=== PATIENT | female | born 1995 | race African-American/Black ===

== ENCOUNTER 2016-06-06 22:21 | Inpatient (IN) | payer OTHER ==
[2016-06-06 23:27] LABS: AMPHETAMINES NEGATIVE (NEGATIVE); BARBITURATES NEGATIVE (NEGATIVE); BENZODIAZEPINES NEGATIVE (NEGATIVE); COCAINE NEGATIVE (NEGATIVE); MARIJUANA (THC) NEGATIVE (NEGATIVE); METHADONE NEGATIVE (NEGATIVE); TRICYCLIC ANTIDEPRESSANT NEGATIVE (NEGATIVE)
[2016-06-06 23:41] LABS: BILIRUBIN NEGATIVE (NEGATIVE); BLOOD NEGATIVE Ery/uL (NEGATIVE); CLARITY CLEAR (CLEAR); COLOR YELLOW (YELLOW); GLUCOSE (U) NORMAL (NORMAL); KETONE (U) NEGATIVE (NEGATIVE); LEUKOCYTES NEGATIVE Leu/uL (NEGATIVE); NITRITE NEGATIVE (NEGATIVE); PROTEIN NEGATIVE (NEGATIVE); UROBILINOGEN 0.2 mg/dL (0.2-1.0)
[2016-06-07 01:29] LABS: HCT 28.6 % (37.0-47.0); HGB 9.5 g/dl (12.5-16.0); MCH 24.2 pg (25.0-31.0); MCHC 33.2 g/dL (32.0-36.0); PLT 148 K/uL (150-400); RBC 3.92 M/uL (4.20-5.40); RDW 16.5 % (11.5-14.0); WBC 7.8 K/uL (4.0-10.5)
[2016-06-07 04:30] LABS: BILIRUBIN NEGATIVE (NEGATIVE); BLOOD TRACE-INTACT Ery/uL (NEGATIVE); CLARITY CLEAR (CLEAR); GLUCOSE (U) NORMAL (NORMAL); KETONE (U) NEGATIVE (NEGATIVE); LEUKOCYTES NEGATIVE Leu/uL (NEGATIVE); NITRITE NEGATIVE (NEGATIVE); PROTEIN NEGATIVE (NEGATIVE); UROBILINOGEN 0.2 mg/dL (0.2-1.0)
[2016-06-07 04:31] LABS: AMPHETAMINES NEGATIVE (NEGATIVE); BARBITURATES NEGATIVE (NEGATIVE); BENZODIAZEPINES NEGATIVE (NEGATIVE); COCAINE NEGATIVE (NEGATIVE); MARIJUANA (THC) NEGATIVE (NEGATIVE); METHADONE NEGATIVE (NEGATIVE); TRICYCLIC ANTIDEPRESSANT NEGATIVE (NEGATIVE)
[2016-06-07 04:32] LABS: COLOR STRAW (YELLOW)
[2016-06-07 04:37] LABS: URINARY RBC RARE
[2016-06-07 16:41] LABS: HCT 27.1 % (37.0-47.0); HGB 8.9 g/dl (12.5-16.0); MCH 24.1 pg (25.0-31.0); MCHC 32.8 g/dL (32.0-36.0); MCV 73.2 fL (78.0-100.0); PLT 129 K/uL (150-400); RDW 16.6 % (11.5-14.0)
[2016-06-07 16:42] LABS: WBC 8.2 K/uL (4.0-10.5)
== END 2016-06-08 13:53 | disposition home or self-care (01) | DRG 765 ==
LOC: FOD 22:21 → FOB 22:22 → FOD 06-07 00:21 → FOB 06-07 00:22
PROVIDERS: ADMIT Obstetrics & Gynecology
PROC: 10D00Z1 Extraction of Products of Conception, Low, Open Approach (ICD-10-PCS; principal; 2016-06-07 02:15)
DX: O76 Abnormality in fetal heart rate and rhythm complicating labor and delivery (principal); D62 Acute posthemorrhagic anemia; Z3A.37 37 weeks gestation of pregnancy; Z37.0 Single live birth; O34.211 Maternal care for low transverse scar from previous cesarean delivery; N85.8 Other specified noninflammatory disorders of uterus; O36.5930 Maternal care for other known or suspected poor fetal growth, third trimester, not applicable or unspecified; O09.33 Supervision of pregnancy with insufficient antenatal care, third trimester; O99.02 Anemia complicating childbirth; D50.9 Iron deficiency anemia, unspecified
CPT/HCPCS: 36415; 80305; 81001; 81003; 86850; 86900; 86901; 88307; 90686; 90707; 90715; J0690; J1885; J2274; J2405; J2590; J3010